=== PATIENT | female | born 1980 | race Caucasian/White ===

== ENCOUNTER 2020-10-18 10:45 | Outpatient (REF) | payer OTHER, SELFPAY ==
--- NOTE | ~2020-10-18 | MM_ITS ---
EXAMINATION: MM SCREENING DIGITAL BREAST TOMOSYNTHESIS, BILATERAL CLINICAL INFORMATION: Screening. Asymptomatic. Family history breast cancer, mother. The lifetime risk of breast cancer based on the Tyrer-Cuzick Model is 24%. COMPARISON: Outside mammography: 06/26/2013 ([place], [place]). TECHNIQUE: Digital breast tomosynthesis is performed in both the craniocaudal and mediolateral oblique views along with computer-aided detection (CAD). Synthesized 2D images are generated from the tomosynthesis. FINDINGS: The breasts are heterogeneously dense, which may obscure small masses (ACR BI-RADS breast composition Category c). There are no significant masses, abnormal calcifications, or other abnormalities. The axilla and skin contours are unremarkable. No significant changes from prior outside exam. MM/MM tomosynthesis screening BI IMPRESSION: No mammographic evidence of malignancy. ASSESSMENT: BI-RADS 1: Negative RECOMMENDATION: 1. Routine annual mammography screening. 2.. The lifetime risk of breast cancer based on the Tyrer-Cuzick Model is 24%. Additional annual adjunct screening with breast MRI may be of benefit in women with a risk score of 20% or greater and denser breast tissue composition. This patient's information was entered into a reminder system with a target due date for their next mammogram.
== END 2020-10-18 10:46 | disposition home or self-care (01) ==
LOC: HO.MAMMO 10:45
PROVIDERS: PCP Hospitalist; Visit Provider Hospitalist
DX: Z12.31 Encounter for screening mammogram for malignant neoplasm of breast (principal)
CPT/HCPCS: 77063; 77067

== ENCOUNTER 2020-12-17 10:47 | Outpatient (REF) | payer OTHER, SELFPAY ==
--- NOTE | ~2020-12-17 | MM_ITS ---
EXAMINATION: MM DIAGNOSTIC DIGITAL BREAST TOMOSYNTHESIS, RIGHT US DIAGNOSTIC ULTRASOUND BREAST, RIGHT CLINICAL INFORMATION: Palpable nodule noted by patient lower inner right breast for approximately one month. Family history premenopausal breast cancer, mother. The lifetime risk of breast cancer based on the Tyrer-Cuzick Model is 23%. COMPARISON: Mammography: 10/18/2020, outside exam 06/26/2013 ([place], [place]). TECHNIQUE: Digital breast tomosynthesis is performed in both the craniocaudal and mediolateral oblique views along with computer-aided detection (CAD). Synthesized 2D images are generated from the tomosynthesis. Additional magnification views are obtained in the CC and ML x2 projections. Ultrasound right breast is targeted to the area of clinical concern lower inner quadrant. Patient is able to point to the site of palpable concern at time of imaging. Grayscale imaging and color Doppler are performed without and with harmonics. FINDINGS: The breasts are heterogeneously dense, which may obscure small masses (ACR BI-RADS breast composition Category c). There is no interval mass or architectural abnormality. No skin thickening or coarsening of the Daniel's ligaments. No focal duct ectasia. There is subtle calcifications mid posterior outer right breast. These are better seen with magnification views and may be early vascular. No focal grouping or pleomorphic types. Ultrasound demonstrates an oval cyst at site of palpable concern 6:00 position 4 cm from nipple measuring 0.6 x 0.4 cm. Margins are circumscribed and there is increased through-transmission of sound and no associated color flow. There is a smaller cyst in the vicinity. No solid mass or architectural abnormality. Results are discussed with the patient at time of visit. The palpable finding corresponds to a benign cyst under 1 cm. The calcifications outer right breast are benign-appearing, possibly early vascular. Management plan is for short interval six-month follow-up right mammography to include magnification views. MM/MM tomosynthesis diagnostic RT IMPRESSION: 1. Cyst 6:00 position right breast at site of palpable concern measuring 0.6 cm. 2. Probable benign calcifications outer right breast, possibly early vascular. ASSESSMENT: BI-RADS 3: Probably Benign RECOMMENDATION: Diagnostic right mammography in 6 months to include magnification views. This patient's information was entered into a reminder system with a target due date for their next mammogram.
== END 2020-12-17 10:48 | disposition home or self-care (01) ==
LOC: HO.MAMMO 10:47
PROVIDERS: Visit Provider Family Medicine
DX: N63.15 Unspecified lump in the right breast, overlapping quadrants (principal)
CPT/HCPCS: 76642; 77061; 77065

== ENCOUNTER 2021-05-19 12:50 | Outpatient (REF) | payer OTHER, SELFPAY ==
--- NOTE | ~2021-05-19 | MM_ITS ---
EXAMINATION: MM DIAGNOSTIC DIGITAL BREAST TOMOSYNTHESIS, RIGHT CLINICAL INFORMATION: Short interval follow-up probable benign fine vascular calcifications mid posterior outer right breast. Family history breast cancer, mother. The lifetime risk of breast cancer based on the Tyrer-Cuzick Model is 23%. COMPARISON: Mammography: 12/17/2020 (diagnostic, BI-RADS 3), 10/18/2020; outside mammography 06/26/2013 ([place], [place]). TECHNIQUE: Digital breast tomosynthesis is performed in both the craniocaudal and mediolateral oblique views along with computer-aided detection (CAD). Synthesized 2D images are generated from the tomosynthesis. Additional magnification CC and magnification ML views are obtained. FINDINGS: The breasts are heterogeneously dense, which may obscure small masses (ACR BI-RADS breast composition Category c). There is no developing density or interval mass or architectural abnormality. The axilla and skin contours are unremarkable. Some faint fine calcifications mid posterior outer right breast appear vascular. They are less conspicuous when compared with prior imaging. No interval suspicious changes in the calcifications. Results are provided to the patient at time of visit by the technologist. MM/MM tomosynthesis diagnostic RT IMPRESSION: No mammographic evidence of malignancy. Probable benign fine vascular calcifications outer right breast. ASSESSMENT: BI-RADS 3: Probably Benign RECOMMENDATION: Diagnostic mammography at time of annual bilateral exam, due in 6 months. This patient's information was entered into a reminder system with a target due date for their next mammogram.
== END 2021-05-19 12:51 | disposition home or self-care (01) ==
LOC: HO.MAMMO 12:50
PROVIDERS: PCP Hospitalist; Visit Provider Family Medicine
DX: R92.1 Mammographic calcification found on diagnostic imaging of breast (principal)
CPT/HCPCS: 77061; 77065

== ENCOUNTER 2021-07-10 10:57 | Outpatient (REF) | payer OTHER, SELFPAY ==
[2021-07-10 12:31] LABS: Hematocrit 42.2 % (37.0-47.0); Hemoglobin 13.4 g/dl (12.0-16.0); Mean Corpuscular HGB Conc 31.8 g/dl (31.0-35.0); Mean Corpuscular Hemoglobin 28.3 pg (27.0-33.0); Mean Platelet Volume 9.2 fL (9.4-12.3); Platelet Count 360 X10*3/uL (160-400); Red Blood Count 4.74 X10*6/uL (4.20-5.50); Red Cell Distribution Width 13.5 % (11.0-16.0); White Blood Count 16.2 X10*3/uL (4.8-10.8)
[2021-07-10 13:12] LABS: Atypical Lymph Absolute Manual 0.5 x10*3/uL; Atypical Lymphs Percent Manual 3 % (0-6); Band Neutrophils Percent 2 % (3-5); Eosinophils Absolute Manual 0.3 X10*3/uL (0.0-0.4); Eosinophils Percent Manual 2 % (0-4); Lymphocytes Absolute Manual 6.3 X10*3/uL (1.2-4.9); Lymphocytes Percent Manual 39 % (20-40); Monocytes Absolute Manual 0.3 X10*3/uL (0.1-1.2); Monocytes Percent Manual 2 % (2-11); Neutrophils Absolute Manual 8.7 X10*3/uL (2.0-8.3); Neutrophils Percent Manual 52 % (45-73)
[2021-07-10 13:13] LABS: Acanthocytes 1+ (0-2) /OIF; Ovalocytes 1+ (5-14) /OIF; RBC Morphology NOTED
[2021-07-10 13:15] LABS: Platelet Estimate NORMAL (NORMAL); Platelet Morphology Comment NORMAL
== END 2021-07-10 10:58 | disposition home or self-care (01) ==
LOC: HO.LAB 10:57
PROVIDERS: PCP Hospitalist; Visit Provider Internal Medicine Pulmonary Disease
DX: J45.909 Unspecified asthma, uncomplicated (principal); Z91.09 Other allergy status, other than to drugs and biological substances
CPT/HCPCS: 36415; 82785; 85007; 85025; 85027; 86003

== ENCOUNTER → 2021-07-23 10:25 | Outpatient (BNVA) | payer OTHER, SELFPAY | PROVIDERS: PCP Hospitalist; Visit Provider Internal Medicine Pulmonary Disease ==

== ENCOUNTER 2021-11-04 12:51 | Outpatient (REF) | payer OTHER, SELFPAY ==
--- NOTE | ~2021-11-04 | MM_ITS ---
EXAMINATION: MM DIAGNOSTIC DIGITAL BREAST TOMOSYNTHESIS, BILATERAL US BREAST TARGETED, RIGHT CLINICAL INFORMATION: Yearly screening left mammography and diagnostic right mammography for calcifications. The lifetime risk of breast cancer based on the Tyrer-Cuzick Model is 22.1%. Additional annual screening with breast MRI may be of benefit in women with a score of 20% or greater. COMPARISON: Mammography: 05/19/2021 and studies dating back to 06/26/2013. TECHNIQUE: Digital breast tomosynthesis is performed in both the craniocaudal and mediolateral oblique views along with computer-aided detection (CAD). Synthesized 2D images are generated from the tomosynthesis. Spot magnification views of the right breast in craniocaudal and 90 degree mediolateral views performed. Targeted right breast ultrasound. FINDINGS: The breasts are extremely dense, which lowers the sensitivity of mammography (ACR BI-RADS breast composition Category d). There is a stable parenchymal pattern of the left breast without new abnormal dominant mass or suspicious grouping of microcalcifications. Evaluation of the right breast demonstrates essential stability of calcifications within the deep superior aspect. There is also noted to be about the deep superior aspect of the right breast two adjacent circumscribed densities which combined in size measures 1.2 x 1.2 cm. Targeted right breast ultrasound demonstrated at the 8 o'clock position approximately 9 cm from the nipple two adjacent circumscribed hypoechoic lesions with increased through sound transmission and no internal vascularity. One of them has a small amount of lobulation. The more oval structure measures 7 x 8 mm in size. The more lobular structure measures 8 x 5 x 9 mm in size. Results are discussed with the patient at time of visit. MM/MM tomosynthesis diagnostic BI IMPRESSION: 1. Essentially stable calcifications deep superior aspect of the right breast. 2. Two adjacent circumscribed densities deep superior aspect of the right breast approximately 8 o'clock position. Six-month followup right breast mammography and ultrasound is recommended. Consideration of yearly breast MRI could also be performed. ASSESSMENT: BI-RADS 3: Probably Benign RECOMMENDATION: Diagnostic mammography in 6 months. Consideration of breast MRI. This patient's information was entered into a reminder system with a target due date for their next mammogram.
--- NOTE | ~2021-11-04 | US_ITS ---
EXAMINATION: US DIAGNOSTIC ULTRASOUND BREAST, RIGHT CLINICAL INFORMATION: Density deep superior aspect of the right breast. COMPARISON: Mammography of 11/04/2021 and studies dating back to 06/26/2013. TECHNIQUE: Ultrasound of the breast is performed with real-time taylor scale imaging and color Doppler. FINDINGS: Targeted right breast ultrasound demonstrated at the 8 o'clock position approximately 9 cm from the nipple 2 adjacent circumscribed hypoechoic lesions with increased through sound transmission and no internal vascularity. One of them has a small amount of lobulation. The more oval structure measures 7 x 8 mm in size. The more lobular structure measures approximately 8 x 5 x 9 mm in size. Results are discussed with the patient at time of visit. US/US breast RT limited IMPRESSION: 1. Essentially stable calcifications deep superior aspect of the right breast. 2. Adjacent circumscribed densities deep superior aspect of the right breast approximately 8 o'clock position. Six-month follow-up right breast mammography and ultrasound is recommended. Consideration of yearly breast MRI could also be performed. ASSESSMENT: BI-RADS 3: Probably Benign RECOMMENDATION: Diagnostic mammography in 6 months. Consideration of breast MRI.
== END 2021-11-04 12:52 | disposition home or self-care (01) ==
LOC: HO.MAMMO 12:51
PROVIDERS: PCP Hospitalist; Visit Provider Hospitalist
DX: R92.1 Mammographic calcification found on diagnostic imaging of breast (principal)
CPT/HCPCS: 76642; 77062; 77066

== ENCOUNTER 2021-12-29 17:51 | Outpatient (REF) | payer OTHER, SELFPAY ==
--- NOTE | ~2021-12-29 | MR_ITS ---
EXAMINATION: MR BREAST WITHOUT AND WITH CONTRAST, BILATERAL CLINICAL INFORMATION: 41-year-old with inconclusive mammogram and ultrasound. COMPARISON: Correlation to mammogram and ultrasound of 11/04/2021 TECHNIQUE: Imaging was performed with a dedicated breast coil. Prior to the administration of contrast, bilateral axial T1 and bilateral axial T2 weighted sequences were obtained. After the uneventful administration of?6.5 mL of Gadavist, dynamic contrast-enhanced VIBRANT series through the breasts in the axial plane were performed. Subtracted images were performed and reviewed. A delayed sagittal sequence through both breasts was acquired. Additionally, CAD post-processing, including maximum intensity projections, 3-D reconstructions and kinetic analysis, were performed an independent workstation and reviewed by the interpreting radiologist is a portion of this exam. FINDINGS: The patient's fibroglandular tissue demonstrates moderate background enhancement. LEFT BREAST: There is moderate background enhancement which decreases the sensitivity of this examination. There are no areas of mass or non-mass enhancement suspicious of malignancy. There are no secondary signs of malignancy such as nipple inversion or duct enhancement. There are several oval T2 bright masses noted throughout the breast consistent with cysts. The largest is at 1 o'clock measuring 1.3 cm. There are no additional findings on kinetic curve analysis. RIGHT BREAST: Similar to the contralateral breast, there is moderate diffuse background enhancement which decreases the sensitivity of this examination. There are no areas of mass or non-mass enhancement suspicious of malignancy. There are no secondary signs of malignancy such as nipple inversion or duct enhancement. Particular attention is given to the area of stable calcifications described in the superior aspect of the breast. No abnormal enhancement is noted in this region. There are 2 adjacent oval T2 bright masses at the 8 to 9 o'clock position consistent with cysts corresponding to the masses described on recent ultrasound. Multiple other cysts are noted throughout the breast similar to the contralateral breast. There are no additional findings on kinetic curve analysis. There is no suspicious internal mammary chain or axillary adenopathy. Limited views of the chest and abdomen are unremarkable. MR/MR breast BI wo/w con IMPRESSION: No MR findings suspicious of malignancy. Particular attention to the area of calcifications in the right breast demonstrates no abnormal enhancement. There are multiple cysts noted bilaterally. There are 2 cysts in the right breast at 8 o'clock which correspond to to the findings on recent ultrasound. ASSESSMENT: LEFT BREAST: BI-RADS 2 benign RIGHT BREAST: BI-RADS 2 benign RECOMMENDATIONS: Routine mammographic imaging as per most recent study.
== END 2021-12-29 17:52 | disposition home or self-care (01) ==
LOC: HO.MRI 17:51
PROVIDERS: Visit Provider Family Medicine
DX: Z12.39 Encounter for other screening for malignant neoplasm of breast (principal); R92.8 Other abnormal and inconclusive findings on diagnostic imaging of breast; R92.2 Inconclusive mammogram
CPT/HCPCS: 77049; A9585

== ENCOUNTER 2022-06-11 12:43 | Outpatient (REF) | payer OTHER, SELFPAY ==
--- NOTE | ~2022-06-11 | MM_ITS ---
EXAMINATION: MM DIAGNOSTIC DIGITAL BREAST TOMOSYNTHESIS, RIGHT CLINICAL INFORMATION: Probable benign fine vascular calcifications mid posterior outer right breast. Family history breast cancer, mother. COMPARISON: Bilateral breast MR 12/29/2021, ultrasound right breast 11/04/2021, mammography 11/04/2021, 05/19/2021, ultrasound right breast 12/17/2020, mammography 12/17/2020 (diagnostic, BI-RADS 3), 10/18/2020. TECHNIQUE: Digital breast tomosynthesis is performed in both the craniocaudal and mediolateral oblique views along with computer-aided detection (CAD). Synthesized 2D images are generated from the tomosynthesis. Additional views are obtained: exaggerated right CC, magnification exaggerated right CC, magnification right ML. FINDINGS: The breasts are heterogeneously dense, which may obscure small masses (ACR BI-RADS breast composition Category c). There is fine fibronodular pattern similar to prior studies. The nodularity noted on prior exam 11/04/2021 is less conspicuous. MRI 12/29/2021 notes that the nodularity are related to benign incidental cysts. There is no interval mass or architectural abnormality or developing density. The axilla and skin contours are unremarkable. The calcifications for follow-up posterior outer breast are stable to decreased and possibly vascular. The calcifications will be reassessed again at time of annual bilateral mammography due in 6 months to conclude long-term surveillance. Results are discussed with the patient at time of visit. MM/MM tomosynthesis diagnostic RT IMPRESSION: -No mammographic evidence of malignancy. -The probable benign calcifications for follow-up posterior outer breast are stable to decreased. ASSESSMENT: BI-RADS 3: Probably Benign RECOMMENDATION: Magnification views right breast at time of annual bilateral mammography, due in 6 months. This patient's information was entered into a reminder system with a target due date for their next mammogram.
== END 2022-06-11 12:44 | disposition home or self-care (01) ==
LOC: HO.MAMMO 12:43
PROVIDERS: PCP Hospitalist; Visit Provider Hospitalist
DX: R92.1 Mammographic calcification found on diagnostic imaging of breast (principal); R92.2 Inconclusive mammogram
CPT/HCPCS: 77061; 77065

== ENCOUNTER 2023-02-08 13:20 | Outpatient (REF) | payer OTHER, SELFPAY ==
--- NOTE | ~2023-02-08 | MM_ITS ---
EXAMINATION: MM DIAGNOSTIC DIGITAL BREAST TOMOSYNTHESIS, BILATERAL CLINICAL INFORMATION: 6 month interval follow-up right breast calcifications upper outer quadrant, probably benign, showing stability from 12/17/2020. Patient also due for bilateral screening exam. COMPARISON: Mammography: 06/11/2022, 11/04/2021, 05/19/2021, and 12/17/2020. Breast MRI dated 12/29/2021. TECHNIQUE: Digital breast tomosynthesis is performed in both the craniocaudal and mediolateral oblique views along with computer-aided detection (CAD). Synthesized 2D images are generated from the tomosynthesis. In addition to standard views, 2-D spot magnification right CC and ML views were performed. FINDINGS: The breasts are heterogeneously dense, which may obscure small masses (ACR BI-RADS breast composition Category c). The faint calcifications in the upper outer quadrant right breast are stable and unchanged, demonstrating two-year stability. No aggressive changes. These are benign. There are likely vascular. Otherwise, there are stable benign circumscribed masses in both breasts, likely related to multiple cysts as seen on the recent breast MRI as well. No suspicious masses, new suspicious grouped calcifications, or areas of architectural distortion are identified in either breast. MM/MM tomosynthesis diagnostic BI IMPRESSION: No evidence of malignancy in either breast. Stable faint calcifications right breast upper outer quadrant, demonstrating a two-year stability confirming benignity. No further follow-up recommended. Stable benign cysts bilateral breasts, seen on prior MRI. Given above, recommend the patient resume routine annual screening to include both breasts. ASSESSMENT: BI-RADS BI-RADS 2 - Benign Findings RECOMMENDATION: 1 year F/U Results were provided to the patient at time of visit by the technologist. This patient's information was entered into a reminder system with a target due date for their next mammogram.
== END 2023-02-08 13:21 | disposition home or self-care (01) ==
LOC: HO.MAMMO 13:20
PROVIDERS: PCP Hospitalist; Visit Provider Hospitalist
DX: R92.1 Mammographic calcification found on diagnostic imaging of breast (principal)
CPT/HCPCS: 77062; 77066

== ENCOUNTER → 2023-02-08 13:30 | Outpatient (BNV) | payer OTHER, SELFPAY | PROVIDERS: PCP Hospitalist; Visit Provider Radiology Diagnostic Radiology | DX: N63.11 Unspecified lump in the right breast, upper outer quadrant (principal) | CPT/HCPCS: 77062; 77066 ==

== ENCOUNTER 2024-02-16 14:34 | Outpatient (REF) | payer BC, SELFPAY ==
--- NOTE | ~2024-02-16 | MM_ITS ---
EXAMINATION: MM SCREENING DIGITAL BREAST TOMOSYNTHESIS, BILATERAL CLINICAL INFORMATION: Screening. Asymptomatic. COMPARISON: Mammography: Comparison is made with available priors TECHNIQUE: Digital breast mammography with tomosynthesis is performed in both the craniocaudal and mediolateral oblique views along with computer-aided detection (CAD). FINDINGS: The breasts are heterogeneously dense, which may obscure small masses (ACR BI-RADS breast composition Category c). Bilateral circumscribed oval masses which wax and wane consistent with benign cysts and fibrocystic changes. There are no significant masses, abnormal calcifications, or other abnormalities. MM/MM tomosynthesis screening BI IMPRESSION: No mammographic evidence of malignancy. ASSESSMENT: BI-RADS BI-RADS 2 - Benign Findings RECOMMENDATION: Routine annual mammography screening. 1 year F/U This examination should not preclude the clinical evaluation of a suspicious palpable abnormality. This patient's information was entered into a reminder system with a target due date for their next mammogram. Electronically signed by: Cony Parmar DO 03/01/2024 08:07 PM EDT
== END 2024-02-16 14:35 | disposition home or self-care (01) ==
LOC: HO.MAMMO 14:34
PROVIDERS: Visit Provider Nurse Practitioner Family
DX: Z12.31 Encounter for screening mammogram for malignant neoplasm of breast (principal)
CPT/HCPCS: 77063; 77067

== ENCOUNTER → 2024-02-16 14:45 | Outpatient (BNV) | payer BC, SELFPAY | PROVIDERS: Visit Provider Internal Medicine | DX: Z12.31 Encounter for screening mammogram for malignant neoplasm of breast (principal) | CPT/HCPCS: 77063; 77067 ==

== ENCOUNTER 2025-03-29 13:18 | Outpatient (REF) | payer BC, SELFPAY ==
--- OUTSIDE RECORDS SUMMARY | 2013-06-26 01:00 | XMS_ITS | Encounter Summary ---
Author Organization [facility] Address [address] [place] [phone] Phone Care Team Providers Care Quality Assurance Monitor Chassis Name Role Phone Unavailable Primary Care Provider Unavailabl e Encounter Details Date Type Department Care Team (Late st Contact Info) Description 06/26/2013 Hospital Encounter [facility],Outside Imaging [address] [place] [address] System, Provider Not In, [facility] [address] [address] Social History Tobacco Use Types Packs/Day Years [...] 11:35 AM EST Raissa Tilley CNP * [place] Suicide Severity Rating Scale (Screener/Recent Self-Report) Question [...] It is not the complete legal health record.[facility]
--- OUTSIDE RECORDS SUMMARY | 2020-05-12 15:15 | XMS_ITS | Encounter Summary ---
Author Organization [facility] Address [address] [place] [phone] Phone Care Team Providers Care Paper Cutter Name Role Phone Pcp, Unknown Primary Care Provider Unavailabl e Encounter Details Date Type Department Care Team (Late st Contact Info) Description 05/12/2020 2:15 PM EST Hospital Encounter [facility] [address] [place] [phone] Tatum Kinsey CNP [address] [place] [phone] [email or web address] Social History Tobacco Use Types Packs/Day Years [...] 07/06/2021 11:35 AM Raissa Franklin CNP * [place] Suicide Severity Rating Scale (Screener/Recent Self-Report) Question [...] Anatomical Region Laterality Modality Hand Left Radiographic Ndaya ging 05/12/2020 2:22 PM EST Impressions 05/12/2020 2:23 PM EST No significant bony abnormality apparent. POS - [id number] Narrative 05/12/2020 2:23 PM EST COMPARISON: None [...] No significant bony abnormality apparent. POS - [id number] us Tatum Kinsey IT MANAGER IMG XR UPPER EXTREMITY Elena l Result documented in this encounter Visit Diagnoses Not on filedocumented in this encounter Additional Health Concerns Infection Onset Date Last Indicated Resolved Time CoV-Exposed Comment:Positive COVID-19 05/31/2021 05/31/2021 05/31/2021 9:5 2 PM EST COVID-19 05/31/2021 05/31/2021 06/21/2021 1:23 AM EST CoV-Risk 07/06/2021 07/06/2021 07/16/2021 1:22 AM EST documented as of this encounter Care Teams Paper Cutter Relationship Specialty Start Date End Date Pcp, Unknown PCP - General 05/12/20 07/05/21 documented as of this encounter Additional Source Comments The information contained in this document represents components of the legal health record. It is not the complete legal health record.[facility]
--- OUTSIDE RECORDS SUMMARY | 2022-10-20 18:54 | XMS_ITS | Encounter Summary ---
Author Organization [facility] Address [address] [place] [phone] Phone Care Team Providers Care Social Service Technician Name Role Phone Taina Matthews POWERHOUSE MECHANIC SUPERVISOR Primary Care Provider Encounter Details Date Type Department Care Team (Late st Contact Info) Description 10/20/2022 6:54 PM EDT Hospital Encounter Urgent Care [address] [place] [address] Tatum Kinsey CNP [address] [place] [phone] [email or web address] Social History Tobacco Use Types Packs/Day Years [...] IMPRESSION: No fracture or dislocation. Tatum Kinsey RELIEF MANAGER IMG XR LOWER EXTREMITY Elena l Result documented in this encounter Visit Diagnoses Not on filedocumented in this encounter Care Teams Social Service Technician Relationship Specialty Start Date End Date Taina Matthews NP PCP - General Family Medicine 07/06/21 documented as of this encounter Additional Source Comments The information contained in this document represents components of the legal health record. It is not the complete legal health record.[facility]
--- OUTSIDE RECORDS SUMMARY | 2022-10-20 19:05 | XMS_ITS | Encounter Summary ---
Author Organization [facility] Address [address] [place] [address] Phone Care Team Providers Care Roll Hauler Name Role Phone Taina Matthews FRUIT PACKER Primary Care Provider Encounter Details Date Type Department Care Team (Late st Contact Info) Description 10/20/2022 7:05 PM EDT Hospital Encounter [facility] [address] [place] [address] Tatum Kinsey CNP [address] [place] [phone] [email or web address] Social History Tobacco Use Types Packs/Day Years [...] IMPRESSION: No fracture or dislocation. Tatum Kinsey CATH LAB RADIOLOGY TECHNICIAN IMG XR LOWER EXTREMITY Elena l Result documented in this encounter Visit Diagnoses Not on filedocumented in this encounter Care Teams Roll Hauler Relationship Specialty Start Date End Date Taina Matthews NP PCP - General Family Medicine 07/06/21 documented as of this encounter Additional Source Comments The information contained in this document represents components of the legal health record. It is not the complete legal health record.[facility]
--- NOTE | ~2025-03-29 | MM_ITS ---
EXAMINATION: MM SCREENING DIGITAL BREAST TOMOSYNTHESIS, BILATERAL CLINICAL INFORMATION: Screening. Asymptomatic. COMPARISON: Mammography: Comparison is made with available priors TECHNIQUE: Digital breast mammography with tomosynthesis is performed in both the craniocaudal and mediolateral oblique views along with computer-aided detection (CAD). FINDINGS: The breasts are heterogeneously dense, which may obscure small masses. Right: Asymmetry superior breast middle to posterior depth on MLO view. No suspicious calcifications or other abnormal findings. Left: There are no significant masses, abnormal calcifications, or other abnormalities. MM/MM tomosynthesis screening BI IMPRESSION: Additional imaging is recommended ASSESSMENT: BI-RADS Category 0: Incomplete - Need additional Imaging Evaluation RECOMMENDATION: 1. Additional views of the right breast. 2. Targeted ultrasound if warranted after review of the additional views. 3. Radiology department staff will contact the patient for additional imaging. Additional Imaging required Electronically signed by: Cony Parmar DO 04/02/2025 09:28 AM EDT
--- OUTSIDE RECORDS SUMMARY | 2025-03-29 15:20 | XMS_ITS | Encounter Summary ---
Author Organization [facility] Address [address] [place] [phone] Phone Care Team Providers Care Board Turner Name Role Phone Pcp, Unknown Primary Care Provider Taina Perez NP Primary Care Provider Encounter Details Date Type Department Care Team (Late st Contact Info) Description 12/24/2020 Ancillary Orders [facility],Outside Imaging [address] [place] [address] System, Provider Not In, [place] [address] Social History Tobacco Use Types Packs/Day Years Used Date Smoking Tobacco: Never Smokeless Tobacco: Never Comments Unknown Sex and Gender Information Value Date Recorded Sex Assigned at Female 07/06/2021 11:35 AM EST Legal Sex Female 1:07 PM EDT Gender Identity Female 07/06/2021 11:35 AM EST Sexual Orientation Not on file documented as of this encounter Plan of Treatment Not on file documented as of this encounter Results * Mammogram Outside (No Interpretation) (10/18/2020 12:00 AM EDT) Narrative SYSTEMGENERATED, DOCUMENTATION - 12/24/2020 10:29 AM EDT This study is for PACS [...] documented as of this encounter Care Teams Board Turner Relationship Specialty Start Date End Date Pcp, Unknown PCP - General 05/12/20 07/05/21 Taina Matthews NP PCP - General Family Medicine 07/06/21 documented as of this encounter Additional Source Comments The information contained in this document represents components of the legal health record. It is not the complete legal health record.[facility]
--- OUTSIDE RECORDS SUMMARY | 2025-03-29 15:20 | XMS_ITS | Encounter Summary ---
Author Organization [facility] Address [address] [place] [address] Phone Care Team Providers Care Tape Keller Operator Name Role Phone Pcp, Unknown Primary Care Provider Taina Perez NP Primary Care Provider Encounter Details Date Type Department Care Team (Late st Contact Info) Description 12/24/2020 Ancillary Orders [facility],Outside Imaging [address] [place] [address] System, Provider [place] In, [place] [address] Social History Tobacco Use Types Packs/Day Years [...] documented as of this encounter Results * US Breast Outside (No Interpretation) (12/17/2020 12:00 AM EDT) Narrative SYSTEMGENERATED, DOCUMENTATION - 12/24/2020 10:30 AM EDT This study is for PACS [...] documented as of this encounter Care Teams Tape Keller Operator Relationship Specialty Start Date End Date Pcp, Unknown PCP - General 05/12/20 07/05/21 Taina Matthews NP PCP - General Family Medicine 07/06/21 documented as of this encounter Additional Source Comments The information contained in this document represents components of the legal health record. It is not the complete legal health record.[facility]
--- OUTSIDE RECORDS SUMMARY | 2025-03-29 15:20 | XMS_ITS | Encounter Summary ---
Author Organization [facility] Address [address] [place] [address] Phone Care Team Providers Care Recorder Helper Seismograph Name Role Phone Pcp, Unknown Primary Care Provider Taina Perez NP Primary Care Provider Encounter Details Date Type Department Care Team (Late st Contact Info) Description 12/30/2020 Ancillary Orders [facility],Outside Imaging [address] [place] [address] System, Provider [place] In, [place] [address] Social History Tobacco Use Types Packs/Day Years [...] documented as of this encounter Care Teams Recorder Helper Seismograph Relationship Specialty Start Date End Date Pcp, Unknown PCP - General 05/12/20 07/05/21 Taina Matthews NP PCP - General Family Medicine 07/06/21 documented as of this encounter Additional Source Comments The information contained in this document represents components of the legal health record. It is not the complete legal health record.[facility]
--- OUTSIDE RECORDS SUMMARY | 2025-03-29 15:20 | XMS_ITS | Encounter Summary ---
Author Organization [facility] Address [address] [place] [phone] Phone Care Team Providers Care Middle School English Teacher Name Role Phone Pcp, Unknown Primary Care Provider Taina Perez NP Primary Care Provider Encounter Details Date Type Department Care Team (Late st Contact Info) Description 12/24/2020 Ancillary Orders [facility],Outside Imaging [address] [place] [address] System, Provider [place] In, [place] [address] Social History Tobacco Use Types Packs/Day Years [...] encounter Results * Mammogram Outside (No Interpretation) (12/17/2020 12:05 AM EDT) Narrative SYSTEMGENERATED, DOCUMENTATION - 12/24/2020 10:31 AM EDT This study is for PACS [...] documented as of this encounter Care Teams Middle School English Teacher Relationship Specialty Start Date End Date Pcp, Unknown PCP - General 05/12/20 07/05/21 Taina Matthews NP PCP - General Family Medicine 07/06/21 documented as of this encounter Additional Source Comments The information contained in this document represents components of the legal health record. It is not the complete legal health record.[facility]
--- OUTSIDE RECORDS SUMMARY | 2025-03-29 15:20 | XMS_ITS | Clinical Summary ---
Author Organization [facility] Address [address] [place] [address] Phone Care Team Providers Care Sand Mill Operator Name Role Phone Taina Matthews NP Primary Care Provider Allergies No known active allergies Medications albuterol 90 mcg/actuation inhaler Inhale 2 puffs into the lungs every 6 (six) hours as needed for wheezing. 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 Asthma 03/15/2019 Immunizations Immunization Administration Dates Next Due COVID-19 (Pre-03/28) Moderna Vaccine, mRNA, PF 06/27/2021,07/30/2020,06/30/2020 Influenza Quadrivalent Prese rvative Free IM 03/23/2022,03/31/2021,03/25/2020,2019 Social History Tobacco Use Types Packs/Day Years [...] AM EST Sexual Orientation Not on file Last Filed Vital Signs Vital Sign Reading Time Taken Comments Blood Pressure 135/92 10/20/2022 6:35 PM EDT Pulse 87 10/20/2022 6:35 PM EDT Temperature 36.8 C (98.3 F) 10/20/2022 6:35 PM EDT Respiratory Rate 20 10/20/2022 6:35 PM EDT Oxygen Saturation 100% 10/20/2022 6:3 5 PM EDT Inhaled Oxygen Concentration - - Weight 63.5 kg (140 lb) 10/20/2022 6:35 PM EDT patien reported Height 157.5 cm (5' 2 ) 10/20/2022 6:35 PM EDT Body Mass Index 25.61 10/20/2022 6:35 PM EDT Plan of Treatment Health Maintenance Due Date Last Done Comments Adult Td,Tdap Booster 1980 DEPRESSION SCREENING 1992 HEPATITIS C SCREENING 1998 HIV ONE-TIME SCREENING (18-65 YEARS) 1998 PNEUMOCOCCAL VACCINES (0-49 years) (1 of 2 - PCV) 1999 PAP SMEAR 2001 MAMMOGRAM 12/17/2022 12/17/2020, 10/04, 06/26/2013 SCREENING FOR DIABETES 07/06/2024 07/06/2021 INFLUENZA VACCINE (#1) 2025 , 03/31/2021, 03/25/2020, Additional history exists COVID-19 VACCINE ( - 2024- season) 2025 06/27/2021, 07/30/2020, 06/30/2020 SMOKING STATUS SCREENING (Once After 26 Yrs) Completed 04/09/2022 HEPATITIS A VACCINES Aged Out No long er eligible based on patient's age to complete this topic HIB VACCINES Aged Out No longer eligi ble based on patient's age to complete this topic MENINGOCOCCAL VACCINES (ACWY) Aged Out No longer eligible based on patient's age to complete this topic MENINGOCOCCAL VACCINES (B) Aged Out N o longer eligible based on patient's age to complete this topic Medical Devices Not on file Procedures Procedure Name Priority Date/Time Associated Diagnosis Comments BI MAMMOGRAM OUTSIDE (NO INTERPRETATION) Routine 12/17/2020 12:05 AM EDT from Last 3 Months or Most Recently Relevant to Health Maintenance Results * Mammogram Outside (No Interpretation) (12/17/2020 12:05 AM EDT) Narrative SYSTEMGENERATED, DOCUMENTATION - 12/24/2020 10:31 AM EDT This study is for PACS storage only and not for interpretation. us Provider Not In System PhD IMG OUTSIDE IMAGING W /OUT INTERPRETATION Final Result from Last 3 Months or Most Recently Relevant to Health Maintenance [facility] CIGNA DENTAL Care Teams Sand Mill Operator Relationship Specialty Start Date End Date Taina Matthews NP PCP - General Family Medicine 07/06/21 Additional Source Comments The information contained in this document represents components of the legal health record. It is not the complete legal health record.[facility]
== END 2025-03-29 13:19 | disposition home or self-care (01) ==
LOC: HO.MAMMO 13:18
PROVIDERS: PCP Family Medicine; Visit Provider Family Medicine
DX: Z12.31 Encounter for screening mammogram for malignant neoplasm of breast (principal)
CPT/HCPCS: 77063; 77067

== ENCOUNTER → 2025-03-29 13:30 | Outpatient (BNV) | payer BC, SELFPAY | PROVIDERS: PCP Family Medicine; Visit Provider Internal Medicine | DX: Z12.31 Encounter for screening mammogram for malignant neoplasm of breast (principal) | CPT/HCPCS: 77063; 77067 ==

== ENCOUNTER 2025-05-21 14:12 | Outpatient (REF) | payer BC, SELFPAY ==
--- OUTSIDE RECORDS SUMMARY | 2013-06-26 | XMS_ITS | Encounter Summary ---
Author Organization [facility] Address [address] [place] [phone] Phone Care Team Providers Care Oil Field Rig Builder Name Role Phone Unavailable Primary Care Provider Unavailabl e Encounter Details Date Type Department Care Team (Late st Contact Info) Description 06/26/2013 Hospital Encounter [facility],Outside Imaging [address] [place] [address] System, Provider Not In, [facility] [address] [id number] Social History Tobacco Use Types Packs/Day Years Used Date Smoking Tobacco: Never Smokeless Tobacco: Never Alcohol Use Standard Drinks/Week Comments Yes 0 (1 standard drink = 0.6 oz pur e alcohol) Occasional Education Answer Date Recorded Are you interested in more education? Not on stephan e 10/01/2022 Are you concerned about learning? Not on file 10/01/2022 No 10/01/2022 No 10/01/2022 Digital Access Answer Date Recorded No 11/01/2022 No 11/01/2022 No 11/01/2022 Reliable internet access at home? Not on file 11/01/2022 Device with a working camera? Not on file Comments Unknown Sex and Gender Information Value Date Recorded Sex Assigned at Female 07/06/2021 11:35 AM EST Legal Sex Female 1:07 PM EDT Gender Identity Female 07/06/2021 11:35 AM EST Sexual Orientation Not on file documented as of this encounter Functional Status * Calculated C-SSRS Risk Score (Lifetime/Recent) Answer Date of Assessment Author No Risk Indicated 07/06/2021 11:35 AM EST Raissa Tilley CNP * [place] Suicide Severity Rating Scale (Screener/Recent Self-Report) Question Answer Date of Assessment Author 1. Wish to be (Past 1 Month) No 07/06/2021 11:35 AM Raissa Franklin CNP 2. Non-Specific Active Suicidal Thoughts (Past 1 Month) No 07/06/2021 11:35 AM Raissa Franklin CNP 6. Suicidal Behavior (Lifetime) No 07/06/2021 11:35 AM Raissa Franklin CNP documented as of this encounter Plan of Treatment Not on file documented as of this encounter Procedures Procedure Name Priority Date/Time Associated Diagnosis Comments BI MAMMOGRAM OUTSIDE (NO INTERPRETATION) Routine 06/26/2013 12:00 AM EST documented in this encounter Results * Mammogram Outside (No Interpretation) (06/26/2013 12:00 AM EST) Narrative SYSTEMGENERATED, DOCUMENTATION - 12/30/2020 10:07 AM EDT This study is for PACS storage only and not for interpretation. us Provider Not In System PhD IMG OUTSIDE IMAGING W /OUT INTERPRETATION Final Result documented in this encounter Visit Diagnoses Not on filedocumented in this encounter Additional Health Concerns Infection Onset Date Last Indicated Resolved Time CoV-Exposed Comment:Positive COVID-19 05/31/2021 05/31/2021 05/31/2021 9:5 2 PM EST COVID-19 05/31/2021 05/31/2021 06/21/2021 1:23 AM EST CoV-Risk 07/06/2021 07/06/2021 07/16/2021 1:22 AM EST documented as of this encounter Additional Source Comments The information contained in this document represents components of the legal health record. It is not the complete legal health record.[facility]
--- OUTSIDE RECORDS SUMMARY | 2020-05-12 14:15 | XMS_ITS | Encounter Summary ---
Author Organization [facility] Address [address] [place] [address] Phone Care Team Providers Care Alcohol And Drug Counselor Name Role Phone Pcp, Unknown Primary Care Provider Unavailabl e Encounter Details Date Type Department Care Team (Late st Contact Info) Description 05/12/2020 2:15 PM EST Hospital Encounter [facility] [address] [place] [phone] Tatum Kinsey CNP [address] [place] [id number] Social History Tobacco Use Types Packs/Day Years [...] Author No Risk Indicated 07/06/2021 11:35 AM Raissa Franklin CNP * [place] Suicide Severity Rating Scale (Screener/Recent Self-Report) Question [...] Procedure Name Priority Date/Time Associated Diagnosis Comments XR FINGER 2 OR MORE VIEWS (LEFT) Urgent/patient waiting 05/12/2020 2:21 PM EST Pain of left middle finger documented in this encounter Results * XR FINGER 2 OR MORE VIEWS (LEFT) (05/12/2020 2:21 PM EST) Anatomical Region Laterality Modality Hand Left Radiographic Nadya ging 05/12/2020 2:22 PM EST Impressions 05/12/2020 2:23 PM EST No significant bony abnormality apparent. POS - [id number] Narrative 05/12/2020 2:23 PM EST COMPARISON: None FINDINGS: Frontal , lateral, and oblique views were obtained revealing no traumatic or destructive bony abnormalities. No significant periosteal irregularity. No aberrant soft tissue calcifications detected. Procedure Note Andrea Baldwin MD - 05/12/2020 COMPARISON: None FINDINGS: Frontal , lateral, and oblique views were obtained revealing no traumaticor destructive bony abnormalities. No significant periosteal irregularity.No aberrant soft tissue calcifications detected. IMPRESSION: No significant bony abnormality apparent. POS - [id number] us Tatum Kinsey INSURANCE PROCESSOR IMG XR UPPER EXTREMITY Elena l Result documented in this encounter Visit Diagnoses Not on filedocumented in this encounter Additional Health Concerns Infection Onset Date Last Indicated Resolved Time CoV-Exposed Comment:Positive COVID-19 05/31/2021 05/31/2021 05/31/2021 9:5 2 PM EST COVID-19 05/31/2021 05/31/2021 06/21/2021 1:23 AM EST CoV-Risk 07/06/2021 07/06/2021 07/16/2021 1:22 AM EST documented as of this encounter Care Teams Alcohol And Drug Counselor Relationship Specialty Start Date End Date Pcp, Unknown PCP - General 05/12/20 07/05/21 documented as of this encounter Additional Source Comments The information contained in this document represents components of the legal health record. It is not the complete legal health record.[facility]
--- OUTSIDE RECORDS SUMMARY | 2022-10-20 17:54 | XMS_ITS | Encounter Summary ---
Author Organization [facility] Address [address] [place] [address] Phone Care Team Providers Care Bat Person Name Role Phone Taina Matthews MEDIA TECHNICIAN Primary Care Provider Encounter Details Date Type Department Care Team (Late st Contact Info) Description 10/20/2022 6:54 PM EDT Hospital Encounter [facility] [address] [place] [address] Tatum Kinsey CNP [address] [place] [phone] [email or web address] Social History Tobacco Use Types Packs/Day Years [...] on file documented as of this encounter Plan of Treatment Not on file documented as of this encounter Procedures Procedure Name Priority Date/Time Associated Diagnosis Comments XR ANKLE 3 OR MORE VIEWS (RIGHT) Urgent/patient waiting 10/20/2022 7:11 PM EDT Acute right ankle pain Activity, other involving climbing, rappelling and jumping off documented in this encounter Results * XR ANKLE 3 OR MORE VIEWS (RIGHT) (10/20/2022 7:11 PM EDT) Anatomical Region Laterality Modality Ankle Right Computed Radiogr aphy 10/20/2022 7:18 PM EDT Impressions 10/20/2022 7:25 PM EDT No fracture or dislocation. Narrative 10/20/2022 7:25 PM EDT XR ANKLE 3 OR MORE VIEWS (RIGHT), XR FOOT 3 OR MORE VIEWS (RIGHT) COMPARISON: None. FINDINGS: No fracture. Normal alignment. Symmetric ankle mortise. Normal joint spaces. No soft tissue swelling or ankle effusion. Procedure Note Nhi Garrido MD - 10/20/2022 XR ANKLE 3 OR MORE VIEWS (RIGHT), XR FOOT 3 OR MORE VIEWS (RIGHT) COMPARISON: None. FINDINGS: No fracture. Normal alignment. Symmetric ankle mortise. Normal jointspaces. No soft tissue swelling or ankle effusion. IMPRESSION: No fracture or dislocation. Tatum Kinsey SUPERVISOR DRIED YEAST IMG XR LOWER EXTREMITY Elena l Result documented in this encounter Visit Diagnoses Not on filedocumented in this encounter Care Teams Bat Person Relationship Specialty Start Date End Date Taina Matthews NP PCP - General Family Medicine 07/06/21 documented as of this encounter Additional Source Comments The information contained in this document represents components of the legal health record. It is not the complete legal health record.[facility]
--- OUTSIDE RECORDS SUMMARY | 2022-10-20 18:05 | XMS_ITS | Encounter Summary ---
Author Organization [facility] Address [address] [place] [address] Phone Care Team Providers Care Surveying Teacher Name Role Phone Taina Matthews PROCESSING ARCHIVIST Primary Care Provider Encounter Details Date Type Department Care Team (Late st Contact Info) Description 10/20/2022 7:05 PM EDT Hospital Encounter [facility] [address] [place] [address] Tatum Kinsey CNP [address] [place] [phone] [email or web address] Social History Tobacco Use Types Packs/Day Years [...] Name Priority Date/Time Associated Diagnosis Comments XR FOOT 3 OR MORE VIEWS (RIGHT) Urgent/patient waiting 10/20/2022 7:12 PM EDT Acute right ankle pain Activity, other involving climbing, rappelling and jumping off documented in this encounter Results * XR FOOT 3 OR MORE VIEWS (RIGHT) (10/20/2022 7:12 PM EDT) Anatomical Region Laterality Modality Foot Right Computed Radiogr aphy 10/20/2022 7:18 PM [...] IMPRESSION: No fracture or dislocation. Tatum Kinsey CONTRACTS ADMINISTRATOR IMG XR LOWER EXTREMITY Elena l Result documented in this encounter Visit Diagnoses Not on filedocumented in this encounter Care Teams Surveying Teacher Relationship Specialty Start Date End Date Taina Matthews NP PCP - General Family Medicine 07/06/21 documented as of this encounter Additional Source Comments The information contained in this document represents components of the legal health record. It is not the complete legal health record.[facility]
--- NOTE | ~2025-05-21 | MM_ITS ---
EXAMINATION(S): 1. MM DIAGNOSTIC DIGITAL BREAST TOMOSYNTHESIS, RIGHT 2. TARGETED ULTRASOUND OF THE RIGHT BREAST CLINICAL INFORMATION: Callback from screening for asymmetry in the superior breast middle to posterior depth on the MLO view COMPARISON: Comparison made to multiple prior mammograms, most recent March 29, 2025, and most remote October 18, 2020. Prior breast MRI on December 29, 2021. Right breast ultrasound on November 04, 2021. TECHNIQUE: Digital breast tomosynthesis is performed in full field ML 90 degrees along with computer-aided detection (CAD). Synthesized 2D images are generated from the tomosynthesis. Spot compression tomosynthesis were obtained. FINDINGS: BREAST COMPOSITION: There are scattered areas of fibroglandular density. RIGHT BREAST: Previously seen asymmetry in the upper breast in the middle to posterior depth is pliable with spot compression. The location of this asymmetry is similar to the calcifications that has been followed up in 2020. Targeted ultrasound of the right breast was performed at the location of the mammographic finding in the upper outer quadrant. Multiple cysts were seen, for example 0.8 x 0.4 x 0.7 cm at 9 o'clock position at 9 cm from the nipple, 0.8 x 0.6 x 0.6 cm at 9 o'clock position at 10 cm from the nipple and 1.5 x 0.9 x 0.4 cm at 9 o'clock position 5 cm from the nipple. One of them may correlate with one of the cysts seen in 2021. Difficult to be certain if one of the cysts could correlate with the asymmetry seen in the upper breast. MM/MM tomosynthesis added views R IMPRESSION: RIGHT BREAST: Pliable asymmetry in the upper breast middle to posterior depth. Unclear if correlates with one of the sonographically seen cysts. Probably benign. A 6-month follow-up mammogram is recommended. ASSESSMENT: BI-RADS: Category 3: Probably benign RECOMMENDATION: 6 Month F/U Results were provided to the patient at time of visit by the technologist. This patient's information was entered into a reminder system with a target due date for their next mammogram. Electronically signed by: Whitney Hay MD 05/21/2025 04:[address] [facility]
--- OUTSIDE RECORDS SUMMARY | 2025-05-21 18:26 | XMS_ITS | Clinical Summary ---
Author Organization [facility] Address [address] [place] [address] Phone Care Team Providers Care Recreation Professor Name Role Phone Taina Matthews NP Primary [...] Most Recently Relevant to Health Maintenance [facility] CIGNA DENTAL Care Teams Recreation Professor Relationship Specialty Start Date End Date Taina Matthews NP PCP - General Family Medicine 07/06/21 Additional Source Comments The information contained in this document represents components of the legal health record. It is not the complete legal health record.[facility]
--- OUTSIDE RECORDS SUMMARY | 2025-05-21 18:26 | XMS_ITS | Encounter Summary ---
Author Organization [facility] Address [address] [place] [phone] Phone Care Team Providers Care China Decorator Name Role Phone Pcp, Unknown Primary Care Provider Taina Perez NP Primary Care Provider Encounter Details Date Type Department Care Team (Late st Contact Info) Description 12/30/2020 Ancillary Orders [facility],Outside Imaging [address] [place] [address] System, Provider [place] In, [place] [address] Social History Tobacco Use Types Packs/Day Years [...] documented as of this encounter Care Teams China Decorator Relationship Specialty Start Date End Date Pcp, Unknown PCP - General 05/12/20 07/05/21 Taina Matthews NP PCP - General Family Medicine 07/06/21 documented as of this encounter Additional Source Comments The information contained in this document represents components of the legal health record. It is not the complete legal health record.[facility]
--- OUTSIDE RECORDS SUMMARY | 2025-05-21 18:26 | XMS_ITS | Encounter Summary ---
Author Organization [facility] Address [address] [place] [phone] Phone Care Team Providers Care Operations Management Professionals Name Role Phone Pcp, Unknown Primary Care Provider Taina Perez NP Primary Care Provider Encounter Details Date Type Department Care Team (Late st Contact Info) Description 12/24/2020 Ancillary Orders [facility],Outside Imaging [address] [place] [address] System, Provider Not In, [place] [address] Social History Tobacco Use Types Packs/Day Years [...] documented as of this encounter Care Teams Operations Management Professionals Relationship Specialty Start Date End Date Pcp, Unknown PCP - General 05/12/20 07/05/21 Taina Matthews NP PCP - General Family Medicine 07/06/21 documented as of this encounter Additional Source Comments The information contained in this document represents components of the legal health record. It is not the complete legal health record.[facility]
--- OUTSIDE RECORDS SUMMARY | 2025-05-21 18:26 | XMS_ITS | Encounter Summary ---
Author Organization [facility] Address [address] [place] [address] Phone Care Team Providers Care Political Consultant Name Role Phone Pcp, Unknown Primary Care Provider Taina Perez NP Primary Care Provider Encounter Details Date Type Department Care Team (Late st Contact Info) Description 12/24/2020 Ancillary Orders [facility],Outside Imaging [address] [place] [address] System, Provider Not In, [place] [address] Social History Tobacco Use Types Packs/Day Years [...] documented as of this encounter Care Teams Political Consultant Relationship Specialty Start Date End Date Pcp, Unknown PCP - General 05/12/20 07/05/21 Taina Matthews NP PCP - General Family Medicine 07/06/21 documented as of this encounter Additional Source Comments The information contained in this document represents components of the legal health record. It is not the complete legal health record.[facility]
--- OUTSIDE RECORDS SUMMARY | 2025-05-21 18:26 | XMS_ITS | Encounter Summary ---
Author Organization [facility] Address [address] [place] [phone] Phone Care Team Providers Care Psych Tech Name Role Phone Pcp, Unknown Primary Care Provider Taina Perez NP Primary Care Provider Encounter Details Date Type Department Care Team (Late st Contact Info) Description 12/24/2020 Ancillary Orders [facility],Outside Imaging [address] [place] [address] System, Provider Not In, [place] [address] Social History Tobacco Use Types Packs/Day Years [...] documented as of this encounter Care Teams Psych Tech Relationship Specialty Start Date End Date Pcp, Unknown PCP - General 05/12/20 07/05/21 Taina Matthews NP PCP - General Family Medicine 07/06/21 documented as of this encounter Additional Source Comments The information contained in this document represents components of the legal health record. It is not the complete legal health record.[facility]
== END 2025-05-21 14:13 | disposition home or self-care (01) ==
LOC: HO.MAMMO 14:12
PROVIDERS: PCP Family Medicine; Visit Provider Family Medicine
DX: N64.89 Other specified disorders of breast (principal)
CPT/HCPCS: 76642; 77061; 77065

== ENCOUNTER → 2025-05-21 14:30 | Outpatient (BNV) | payer BC, SELFPAY | PROVIDERS: PCP Family Medicine; Visit Provider Radiology Body Imaging | DX: R92.8 Other abnormal and inconclusive findings on diagnostic imaging of breast (principal) | CPT/HCPCS: 76642; 77061; 77065 ==